=== PATIENT | female | born 1995 | race African-American/Black ===

== ENCOUNTER 2020-01-29 08:18 | Emergency (ER) | payer OTHER ==
[2020-01-29] MEDS ORDERED: Ondansetron PF 4 MG/2 ML Vial ONE ×2 (08:51→13:40)
[2020-01-29 08:58] LABS: #Basophils 0.1 thou/uL (0.0-0.2); #Lymphocytes 1.3 thou/uL (1.20-3.40); #Monocytes 0.6 thou/uL (0.11-0.59); #Neutrophils 10.9 thou/uL (1.40-6.50); %Basophils 0.7 % (0.0-1.0); %Lymphocytes 10.3 % (21.0-51.0); %Monocytes 4.5 % (0.0-10.0); %Neutrophils 84.5 % (42.0-75.0); Hemoglobin 14.5 g/dL (12.0-16.0); Mean Corpuscular HGB CONC 32.4 g/dL (32.0-36.0); Mean Corpuscular Hemoglobin 30.1 pg (27.0-31.0); Mean Corpuscular Volume 93.1 fL (78.0-98.0); Mean Platelet Volume 7.9 fL (7.4-10.4); Platelet Count 190 thou/uL (130-400); RBC Distribution Width 12.5 % (11.5-14.5); Red Blood Cell (RBC) Count 4.82 mill/uL (4.20-5.40); White Blood Cell (WBC) Count 12.9 thou/uL (4.8-10.8)
[2020-01-29 09:22] LABS: ALT (SGPT) Less than 7 U/L (8-55); AST (SGOT) 14 U/L (5-34); Albumin 4.2 g/dL (3.5-5.0); Alkaline Phosphatase 57 U/L (40-110); Anion Gap 10 mmol/L (10-20); BHCG - Serum Negative (NEGATIVE); BUN (Urea Nitrogen) 11 mg/dL (7.0-18.7); Bilirubin, Total 0.7 mg/dL (0.2-1.2); Calc. Creatinine Clearance 0 mL/min (70-130); Calcium 8.9 mg/dL (7.8-10.44); Carbon Dioxide 24 mmol/L (22-29); Chloride 106 mmol/L (98-107); Estimated GFR-MDRD 84; Globulin 3.5 g/dL (2.4-3.5); Glucose 94 mg/dL (70-105); Lipase 11 U/L (8-78); Potassium 3.2 mmol/L (3.5-5.1); Pregs Control Background? CLEAR/WHITE (CLR/WHITE); Pregs Control Bar Appear? YES (CONTROL BAR); Protein, Total 7.7 g/dL (6.0-8.3); Sodium 137 mmol/L (136-145)
[2020-01-29] MEDS ORDERED: Morphine 4 MG/ML VIAL ONE (09:49)
[2020-01-29] MEDS ORDERED: Potassium Chloride 20 MEQ TAB ONE (09:49)
--- NOTE | 2020-01-29 10:28 | CT ---
CT abdomen and pelvis with IV contrast HISTORY: Right lower quadrant pain. Periumbilical pain. FINDINGS: Lung bases are clear. Solid organs of the abdomen are intact. Small amount of free fluid is present within the dependent portion pelvis. Urinary bladder is unremarkable. No evidence of bowel obstruction. Projecting posteriorly from the base of the cecum, the most central portion of the appendix is within normal limits. There is a 0.2 cm calcification within the proximal appendiceal lumen, beyond which the more distal appendix is fluid-filled and dilated up to 1.2 cm. It extends superiorly, along the m edial margin of the iliac vascular bundle, significantly posterior to the right colon. No free air. Sagittal images show mild posterior disc bulge at the lumbosacral junction. IMPRESSION : Acute appendicitis.
[2020-01-29] MEDS ORDERED: Iopamidol-370 76% 500 ML 1 ML ONE (10:33)
[2020-01-29] MEDS ORDERED: Piperacillin/Tazobactam 4.5 GM VIAL ONE (10:56)
--- NOTE | 2020-01-29 13:05 | HP ---
HISTORY OF PRESENT ILLNESS: Ange Stapleton is a 24-year-old black female, who is accompanied to this hospitalization with her boyfriend. She is from her , not yet . She has had a 3-day history of lower abdominal pain. She has suffered anorexia, no fever, but has had nausea and vomiting. She presents to the emergency room, has had evaluation for this, and determined to have appendicitis and I was consulted. The patient underwent a CAT scan of abdomen and pelvis, read by Dr. Junito Manjarrez, radiologist. Findings revealed acute appendicitis. Fecalith appreciated. White count 12 and hemoglobin 14. Basic metabolic profile normal. Potassium 3.2. ALLERGIES: NONE. SOCIAL HISTORY: Tobacco none. Marijuana use occasionally. Alcohol socially. MEDICATIONS: None routinely. PAST SURGICAL HISTORY: . PAST MEDICAL HISTORY: Noncontributory. REVIEW OF SYSTEMS: Ten-point noncontributory. FAMILY HISTORY: Noncontributory. PHYSICAL EXAMINATION: VITAL SIGNS: BP 134/92, heart rate 80, respiratory rate 20, temperature 97.8 degrees, weight 45 kg. HEAD, EARS, EYES, NOSE, AND THROAT: Unremarkable. NEUROLOGIC: Intact. No focal deficits. LUNGS: Clear to auscultation. CARDIAC: Regular rate and rhythm without murmur or gallop. ABDOMEN: Soft. Tenderness in right lower quadrant. No guarding or rebound. EXTREMITIES: Unremarkable. No ankle edema. No axillary, groin, neck lymphadenopathy. ASSESSMENT AND PLAN: Acute appendicitis. Recommend laparoscopic video appendectomy. Risks of infection, bleeding, visceral injury, explained open procedure, bleeding, she consents. Questions answered. We will plan this as an outpatient. Job ID: [id number]
[2020-01-29] MEDS ORDERED: Rocuronium Bromide 10 MG/ML (10ML VIAL) ONE (13:40)
[2020-01-29] MEDS ORDERED: Labetalol HCl 100 MG/20 ML VIAL ONE (13:40)
[2020-01-29] MEDS ORDERED: Succinylcholine Chloride 20 MG/ML 10 ml SYRINGE FS ONE (13:40)
[2020-01-29] MEDS ORDERED: Dexamethasone 20 MG/5 ML VIAL ONE (13:40)
[2020-01-29] MEDS ORDERED: PROPOFOL 200 MG/20 ML VIAL ONE (13:40)
[2020-01-29] MEDS ORDERED: Lidocaine 1% PF 5 ML VIAL ONE (13:40)
[2020-01-29 14:48] LABS: Bilirubin Negative (Negative); Blood, Urine Negative (Negative); Clarity Clear (Clear); Glucose, Urine (Dipstick) Normal (Negative); Leukocyte Negative Leu/uL (Negative); Nitrite Negative (Negative); Protein, Urine (Dipstick) Negative (Neg-Trace); Urobilinogen Normal mg/dL (Less than 2)
[2020-01-29] MEDS ORDERED: Ketorolac Tromethamine 30 MG/ML VIAL ONE (16:53)
[2020-01-29 18:10] LABS: SARS-CoV-2 MS2 Positive; SARS-CoV-2 N Gene Negative; SARS-CoV-2 S Gene Negative; SARS-CoV-2 orf1ab Negative
[2020-01-29] MEDS ORDERED: Meperidine HCl/PF 25 MG/ML VIAL ONE (19:29)
[2020-01-29] MEDS ORDERED: hydrALAZINE 20 MG/ML VIAL ONE (19:39)
[2020-01-29] MEDS ORDERED: Fentanyl 100 MCG/2 ML VIAL ONE (20:10)
[2020-01-29] MEDS ORDERED: HYDROcodone/Acetaminophen 5/325 mg Tablet ONE (20:29)
--- NOTE | 2020-01-30 00:57 | OP ---
DATE OF PROCEDURE: 01/29/2020 PREOPERATIVE DIAGNOSIS: Acute appendicitis. POSTOPERATIVE DIAGNOSIS: Acute appendicitis. PROCEDURE PERFORMED: Laparoscopic video appendectomy. ANESTHESIA: General, local 0.5% Marcaine 30 mL mixed with 1% Xylocaine with epinephrine 20 mL, total volume used. DESCRIPTION OF PROCEDURE: The patient was taken to the operating room, where under general anesthesia, Hunt catheter was placed at the beginning of the procedure, removed at the end. Abdomen was clipped of hair, prepared with ChloraPrep, and draped in routine fashion. Local anesthetic was infiltrated into the skin and subcutaneous tissue about the port sites. An infraumbilical incision made, pneumoperitoneum to 15 mmHg was obtained with a Veress needle, replaced with a 5 port, and video laparoscope inserted. Right lateral subcostal incision made and 5 port placed, and suprapubic incision was made, and a 12 port placed under laparoscopic visualization. Appendix acutely inflamed. Mesoappendix was taken down with the LigaSure to the stump of the appendix, dividing the cecal stump with Endo-ROBBIE blue load stapler. Stapled cecal stump. Hemostasis gained with clips. Good hemostasis noted. Appendix was removed in the endobag and submitted to Pathology. Pneumoperitoneum evacuated. Suprapubic fascia was approximated with 0 Vicryl, UR needle. Skin incision approximated with subdermal 4-0 Monocryl and [place] glue applied. Job ID: [id number]
== END 2020-01-29 16:23 | disposition admitted as inpatient to this hospital (09) ==
LOC: ERS 08:18
DX: K35.80 Unspecified acute appendicitis (principal)
CPT/HCPCS: 74177; 80053; 81003; 83690; 83735; 84703; 85025; 87635; 88304; 96361; 96365; 96366; 96375; J0360; J1100; J1885; J2001; J2175; J2270; J2405; J2543; J2704; J3010; Q9967; U0003

== ENCOUNTER 2020-03-28 09:31 | Emergency (ER) | payer OTHER ==
[2020-03-28] MEDS ORDERED: Ondansetron ODT 4 MG TAB ONE (10:02)
[2020-03-28 10:17] LABS: #Basophils 0.1 thou/uL (0.0-0.2); #Eosinphils 0.1 thou/uL (0.0-0.7); #Lymphocytes 2.5 thou/uL (1.20-3.40); #Monocytes 0.4 thou/uL (0.11-0.59); #Neutrophils 2.5 thou/uL (1.40-6.50); %Basophils 2.1 % (0.0-1.0); %Eosinophils 1.6 % (0.0-10.0); %Lymphocytes 44.3 % (21.0-51.0); %Monocytes 6.7 % (0.0-10.0); %Neutrophils 45.4 % (42.0-75.0); Hemoglobin 13.2 g/dL (12.0-16.0); Mean Corpuscular HGB CONC 33.3 g/dL (32.0-36.0); Mean Corpuscular Hemoglobin 30.2 pg (27.0-31.0); Mean Corpuscular Volume 90.7 fL (78.0-98.0); Platelet Count 194 thou/uL (130-400); RBC Distribution Width 11.6 % (11.5-14.5); Red Blood Cell (RBC) Count 4.37 mill/uL (4.20-5.40); White Blood Cell (WBC) Count 5.5 thou/uL (4.8-10.8)
[2020-03-28 10:41] LABS: ALT (SGPT) Less than 7 U/L (8-55); AST (SGOT) 14 U/L (5-34); Albumin 4.2 g/dL (3.5-5.0); Alkaline Phosphatase 38 U/L (40-110); Anion Gap 8 mmol/L (10-20); BUN (Urea Nitrogen) 10 mg/dL (7.0-18.7); Bilirubin, Total 0.3 mg/dL (0.2-1.2); Calc. Creatinine Clearance 0 mL/min (70-130); Carbon Dioxide 25 mmol/L (22-29); Chloride 103 mmol/L (98-107); Estimated GFR-MDRD Greater than 90; Globulin 3.2 g/dL (2.4-3.5); Glucose 61 mg/dL (70-105); Lipase 67 U/L (8-78); Potassium 3.9 mmol/L (3.5-5.1); Protein, Total 7.4 g/dL (6.0-8.3); Sodium 132 mmol/L (136-145)
[2020-03-28] MEDS ORDERED: Ondansetron PF 4 MG/2 ML Vial ONE (12:00)
== END 2020-03-28 13:08 | disposition home or self-care (01) ==
LOC: ERS 09:31
DX: O21.9 Vomiting of pregnancy, unspecified (principal)
CPT/HCPCS: 36415; 80053; 83690; 84702; 85025; 99284; J2405; Q0162